=== PATIENT | female | born 1980 | race Caucasian/White ===

== ENCOUNTER → 2021-09-26 16:12 | Outpatient (CLI) | payer BC, SELFPAY ==
--- NOTE | ~2021-09-26 | MM_ITS ---
EXAMINATION: MM screening elise BI w gege HISTORY: Baseline screening mammogram TECHNIQUE: Craniocaudal and mediolateral oblique 3-D tomosynthesis images were obtained and synthetic 2-D images were generated. CAD analysis was submitted and interpreted. COMPARISON: None, baseline BREAST PARENCHYMAL COMPOSITION: The breasts are heterogeneously dense, which may obscure small masses . FINDINGS: There is no suspicious mass, calcification, or architectural distortion to suggest malignan cy in either breast. IMPRESSION: 1. No mammographic evidence of malignancy. 2. Recommend routine screening mammography in one year. BI-RADS Category 1: Negative Reviewed, dictated and finalized at location A.
== END ==
PROVIDERS: PCP Nurse Practitioner; Visit Provider Nurse Practitioner
DX: Z12.31 Encounter for screening mammogram for malignant neoplasm of breast (principal)
CPT/HCPCS: 77063; 77067

== ENCOUNTER → 2022-10-17 08:37 | Outpatient (CLI) | payer BC, SELFPAY ==
--- NOTE | ~2022-10-17 | XR_ITS ---
AP, oblique, and lateral views of the right first toe CLINICAL HISTORY: Injury FINDINGS: There is an essentially nondisplaced fracture of the distal tuft of the first distal phalan x. No other fracture or dislocation seen. Joint spaces are preserved. Soft tissues are unremarkable. IMPRESSION: Nondisplaced fracture of the distal tuft of the first distal phalanx. Reviewed, dictated and finalized at location .
== END ==
PROVIDERS: PCP Physician Assistant; Visit Provider Physician Assistant
DX: S92.424A Nondisplaced fracture of distal phalanx of right great toe, initial encounter for closed fracture (principal); X58.XXXA Exposure to other specified factors, initial encounter
CPT/HCPCS: 73660

== ENCOUNTER → 2022-12-09 16:11 | Outpatient (CLI) | payer BC, SELFPAY ==
--- NOTE | ~2022-12-09 | MM_ITS ---
EXAMINATION: MM screening elise BI w gege HISTORY: Screening mammogram TECHNIQUE: Craniocaudal and mediolateral oblique 3-D tomosynthesis images were obtained and synthetic 2-D images were generated. CAD analysis was submitted and interpreted. COMPARISON: 09/26/2021 bilateral screening mammogram BREAST PARENCHYMAL COMPOSITION: The breasts are heterogeneously dense, which may obscure small masses . FINDINGS: There is no evidence of suspicious mass, calcification, or architectural distortion to sugg est malignancy in either breast. There has been no suspicious interval change. IMPRESSION: 1. No mammographic evidence of malignancy. 2. Recommend routine screening mammography in one year. BI-RADS Category 1: Negative Reviewed, dictated and finalized at location A.
== END ==
PROVIDERS: PCP Nurse Practitioner; Visit Provider Nurse Practitioner
DX: Z12.31 Encounter for screening mammogram for malignant neoplasm of breast (principal)
CPT/HCPCS: 77063; 77067